=== PATIENT | female | born 1960 | race Hispanic/Latino ===

== ENCOUNTER 2019-04-20 16:46 | Emergency (ER) | payer OTHER ==
[2019-04-20 17:52] LABS: Absolute Lymphocytes (CBC) 2.4 K/uL (0.7-4.9); Basophils % 0.5 % (0-1.3); Hematocrit 43.5 % (36.0-45.0); Lymphocytes % 32.2 % (15.3-44.8); MPV 8.7 fL (7.6-11.3); Monocytes % 7.1 % (3.3-12.3); RBC Red Blood Cell Count 4.92 M/uL (3.86-4.86)
[2019-04-20 17:55] LABS: Protime INR 0.99
[2019-04-20 18:07] LABS: Potassium 4.1 mmol/L (3.5-5.1)
--- NOTE | 2019-04-20 18:24 | RAD REPORT ---
EXAM DESCRIPTION: RAD - Chest Single View - 04/20/2019 6:01 pm CLINICAL HISTORY: Shortness of breath, soft tissue swelling COMPARISON: None. TECHNIQUE: AP portable chest image was obtained 1741 hours . FINDINGS: Lungs are clear. Heart and vasculature are normal. No measurable pleural effusion and no p neumothorax. No acute bony abnormality seen. No acute aortic findings suspected. IMPRESSION: No acute cardiopulmonary process.
--- NOTE | 2019-04-20 19:11 | RAD REPORT ---
EXAM DESCRIPTION: CT - Soft Tissue Neck W/Contr - 04/20/2019 6:29 pm CLINICAL HISTORY: Soft tissue swelling at the chin TECHNIQUE: During dynamic enhancement using 100 milliliters nonionic IV contrast, axial 5 millimeter thick images of the neck were obtained. All CT scans are performed using dose optimization technique as appropriate and may include automated exposure control or mA/KV adjustment according to patient size. FINDINGS: Edematous/inflammatory stranding is present in the soft tissues along the anterior and inf erior margin of the midline mandible. Several small lymph nodes are present in this region up to 10 m m in size. No abscess or foreign body. No air in the soft tissues. Inflammatory changes do not extend into the floor the mouth. Muscles of the floor the mouth show no suspicious findings. No tongue or t ongue base abnormality. Intracranial portion of the examination is unremarkable. Mastoid air cells and paranasal sinuses are clear. No globe or orbital content abnormality. No pharyngeal mass or asymmetry tonsillar regions are normal. No parapharyngeal fat stranding. Epiglottis is normal. No laryngeal abnormality. Thyroid gland, submandibular gland and parotid gland tissue show no suspicious findings. IMPRESSION: Nonspecific infectious/ inflammatory stranding in the soft tissues anterior and inferior to the mandible. Reactive type lymph nodes are present in this region. No abscess, air or foreign body. No extension into the floor the mouth.
--- NOTE | 2019-04-20 19:13 | RAD REPORT ---
EXAM DESCRIPTION: US - Extremity Venous Uni Ltd - 04/20/2019 6:56 pm CLINICAL HISTORY: Leg pain and swelling COMPARISON: None. TECHNIQUE: Real-time sonographic evaluation of the left lower extremity deep venous system was perfo rmed. FINDINGS: Normal compressibility, flow augmentation, phasic flow and spontaneous flow are identified in the left lower extremity common femoral, superficial femoral, popliteal and posterior tibial vein s. No intraluminal filling defects seen. IMPRESSION: No DVT in the left lower extremity.
[2019-04-20] MEDS ORDERED: CLINDAMYCIN 900MG/D5W 900 MG/50 ML IVPB IV ONE (19:54)
--- NOTE | 2019-04-20 20:00 | ER ---
Nurse's Notes [facility] Name: Aga Reeder Age: 59 yrs Sex: Female : 1960 Arrival Date: 04/20/2019 Time: 16:47 Bed 24 Private MD: Diagnosis: Cellulitis and acute lymphangitis of face-submental;Edema, unspecified-left leg Presentation: 04/20 16:58 Presenting complaint: sister states while she was eating she pointed to her chin and it la1 looks swollen to me. Transition of care: patient was not received from another setting of care. Onset of symptoms was April 20, 2019. Risk Assessment: Do you want to hurt yourself or someone else? Patient reports no desire to harm self or others. Initial Sepsis Screen: Does the patient meet any 2 criteria? No. Patient's initial sepsis screen is negative. Does the patient have a suspected source of infection? No. Patient's initial sepsis screen is negative. Care prior to arrival: None. 16:58 Method Of Arrival: Ambulatory la1 16:58 Acuity: LYUBOV 3 la1 Historical: - Allergies: 16:58 No Known Allergies; la1 - PMHx: 16:58 None; la1 - Immunization history:: Adult Immunizations up to date. - Social history:: Smoking status: Patient/guardian denies using tobacco. - Ebola Screening: : No symptoms or risks identified at this time. Screenin:05 Abuse screen: Denies threats or abuse. Denies injuries from another. Nutritional ca1 screening: No deficits noted. Tuberculosis screening: No symptoms or risk factors identified. Fall Risk IV access (20 points). Assessment: 17:05 General: Appears in no apparent distress. comfortable, Behavior is calm, cooperative, ca1 appropriate for age. Pain: Denies pain. 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 Cardiovascular: Heart tones S1 S2 present Capillary refill < 3 seconds Patient's skin is warm and dry. Respiratory: Airway is patent Respiratory effort is even, unlabored, Breath sounds are clear bilaterally. GI: Abdomen is round non-distended, Bowel sounds present X 4 quads. Abd is soft and non tender X 4 quads. : No deficits noted. No signs and/or symptoms were reported regarding the genitourinary system. EENT:. Derm: Skin is intact, is healthy with good turgor, Skin is pink, warm \T\ dry. Musculoskeletal: Circulation, motion, and sensation intact. Capillary refill < 3 seconds, Range of motion: intact in all extremities, Swelling present in left foot. 18:00 Reassessment: Patient appears in no apparent distress at this time. Patient and/or ca1 family updated on plan of care and expected duration. Pain level reassessed. Patient is alert, oriented x 3, equal unlabored respirations, skin warm/dry/pink. 18:50 Reassessment: Patient appears in no apparent distress at this time. Patient and/or ca1 family updated on plan of care and expected duration. Pain level reassessed. Patient is alert, oriented x 3, equal unlabored respirations, skin warm/dry/pink. Ultrasound done at bedside. 19:20 Reassessment: Patient appears in no apparent distress at this time. Patient and/or ca1 family updated on plan of care and expected duration. Pain level reassessed. Patient is alert, oriented x 3, equal unlabored respirations, skin warm/dry/pink. Pt ambulated to restroom with quick, steady gait. 20:13 Reassessment: Patient appears in no apparent distress at this time. Patient is alert, ca1 oriented x 3, equal unlabored respirations, skin warm/dry/pink. Clindamycin still infusing. Will discharge as soon as completed. Vital Signs: 16:58 Resp 16; Temp 97.6(TE); Pulse Ox 100% on R/A; Weight 83.91 kg; la1 16:59 BP 162 / 81; la1 18:00 BP 147 / 75; Pulse 76; Resp 20 S; Pulse Ox 99% on R/A; ca1 18:50 BP 105 / 82; Pulse 90; Resp 17 S; Pulse Ox 100% on R/A; ca1 19:20 BP 148 / 81; Pulse 81; Resp 17 S; Pulse Ox 100% on R/A; ca1 20:13 BP 135 / 84; Pulse 88; Resp 16 S; Temp 98(O); Pulse Ox 99% ; ca1 20:26 BP 135 / 84; Pulse 85; Resp 18; Temp 98.6; Pulse Ox 99% ; Pain 0/10; cr4 ED Course: 16:47 Patient arrived in ED. ag5 16:58 Arm band placed on left wrist. la1 16:59 Triage completed. la1 17:01 Ventura Aguirre PA is PHCP. cp 17:01 Nitish Cannon MD is Attending Physician. cp 17:03 Cristin Hansen, CONI is Primary Nurse. ca1 17:05 Patient has correct armband on for positive identification. Placed in gown. Bed in low ca1 position. Call light in reach. Side rails up X 1. Pulse ox on. NIBP on. Warm blanket given. 17:05 No provider procedures requiring assistance completed. ca1 17:12 Radiology exam delayed due to lab results not completed at this time. (BUN/Creatinine). vm2 17:41 Initial lab(s) drawn, by me, sent to lab. Inserted saline lock: 20 gauge in right lt1 antecubital area, using aseptic technique. 17:44 XRAY Chest (1 view) In Process Unspecified. EDMS 17:59 Radiology exam delayed due to lab results not completed at this time. (BUN/Creatinine). nj 18:[address] via stretcher. nj 18:29 CT Soft Tissue Neck W/contr In Process Unspecified. EDMS 18:33 Patient moved back from CT. ca1 18:56 US Extremity Venous Unilateral Ltd In Process Unspecified. EDMS 18:57 Ultrasound completed. Patient tolerated well. sg3 20:27 IV discontinued, intact, bleeding controlled. cr4 Administered Medications: 19:53 Drug: Clindamycin 900 mg Route: IVPB; Infused Over: 30 mins; Site: right antecubital; cr4 20:14 Follow up: Response: No adverse reaction; IV Status: Completed infusion; IV Intake: [id number] Intake: 20:14 IV: 50ml; Total: 50ml. cr4 Outcome: 19:59 Discharge ordered by . cp 20:27 Discharged to home ambulatory, with family. cr4 20:27 Condition: good 20:27 Discharge instructions given to family, Instructed on discharge instructions, follow up and referral plans. medication usage, Demonstrated understanding of instructions, follow-up care, Prescriptions given X 2. 20:29 Patient left the ED. cr4 Signatures: Dispatcher [employer] EDMS Hilary Kay RN RN cr4 Glenroy Moya RN RN la1 Ventura Aguirre PA PA cp Jordan, Nathan nj McGuire Lashonda 2 Liliya Mckeon sg3 Cristin Hansen, RN RN ca1 Keya Don ag5 Ana Harris lt1
--- NOTE | 2019-04-20 20:00 | EDPHYS ---
Physician Documentation [facility] Name: Aga Reeder Age: 59 yrs Sex: Female : 1960 Arrival Date: 04/20/2019 Time: 16:47 Bed 24 Private MD: ED Physician Nitish Cannon HPI: 04/20 17:15 This 59 yrs old Female presents to ER via Ambulatory with complaints of Skin cp Problem. 17:15 The patient or guardian complains of pain, that is acute, swelling. The symptoms are cp located on the chin and submental area. 17:15 Onset: The symptoms/episode began/occurred at an unknown time. Patient is a mute and cp sister reports she noticed swelling today. Associated signs and symptoms: Pertinent negatives: fever. Unable to obtain HPI due to patient is mute. Historical: - Allergies: 16:58 No Known Allergies; la1 - PMHx: 16:58 None; la1 - Immunization history:: Adult Immunizations up to date. - Social history:: Smoking status: Patient/guardian denies using tobacco. - Ebola Screening: : No symptoms or risks identified at this time. ROS: 17:30 Constitutional: Negative for fever. cp 17:30 ENT: Positive for submental pain and swelling. cp 17:30 Unable to obtain ROS due to patient a mute. Exam: 18:35 Constitutional: The patient appears in no acute distress, alert, awake, cp non-diaphoretic, non-toxic, well developed, well nourished. 18:35 Head/face: Noted is erythema, that is mild, of the chin, swelling, that is mild, of the submental area, tenderness, that is mild, of the submental area. 18:35 Eyes: Periorbital structures: appear normal, Pupils: equal, round, and reactive to light and accomodation, Extraocular movements: intact throughout, Conjunctiva: normal, no exudate, no injection, Sclera: no appreciated abnormality, Lids and lashes: appear normal, bilaterally. 18:35 ENT: External ear(s): are unremarkable, Ear canal(s): are normal, clear, TM's: dullness, bilaterally, Nose: is normal, Mouth: Lips: moist, Oral mucosa: moist, Gums: normal with healthy appearance, Tongue: is normal, abscess, is not appreciated, Posterior pharynx: Airway: no evidence of obstruction, patent, erythema, is not appreciated, exudate, is not appreciated, Dental exam: abscess, is not appreciated, dental caries, that is moderate. 18:35 Neck: ROM/movement: is normal, is supple, no range of motions limitations, no meningismus, no nuchal rigidity. 18:35 Chest/axilla: Inspection: normal. 18:35 Cardiovascular: Rate: normal, Rhythm: regular. 18:35 Respiratory: the patient does not display signs of respiratory distress, Respirations: normal, no use of accessory muscles, no retractions, no splinting, no tachypnea, Breath sounds: are clear throughout, no decreased breath sounds, no stridor, no wheezing. 18:35 Abdomen/GI: Inspection: abdomen appears normal, Palpation: abdomen is soft and cp non-tender, in all quadrants. Vital Signs: 16:58 Resp 16; Temp 97.6(TE); Pulse Ox 100% on R/A; Weight 83.91 kg; la1 16:59 BP 162 / 81; la1 18:00 BP 147 / 75; Pulse 76; Resp 20 S; Pulse Ox 99% on R/A; ca1 18:50 BP 105 / 82; Pulse 90; Resp 17 S; Pulse Ox 100% on R/A; ca1 19:20 BP 148 / 81; Pulse 81; Resp 17 S; Pulse Ox 100% on R/A; ca1 20:13 BP 135 / 84; Pulse 88; Resp 16 S; Temp 98(O); Pulse Ox 99% ; ca1 20:26 BP 135 / 84; Pulse 85; Resp 18; Temp 98.6; Pulse Ox 99% ; Pain 0/10; cr4 MDM: 17:05 Patient medically screened. cp 18:00 Differential diagnosis: abscess, cellulitis, enlarged lymph node, dental abscess. cp 19:58 Data reviewed: vital signs, nurses notes, lab test result(s), radiologic studies, CT cp scan, plain films, and as a result, I will discharge patient. 19:58 Counseling: I had a detailed discussion with the patient and/or guardian regarding: the cp historical points, exam findings, and any diagnostic results supporting the discharge/admit diagnosis, lab results, radiology results, to return to the emergency department if symptoms worsen or persist or if there are any questions or concerns that arise at home. 19:58 Response to treatment: the patient's symptoms have mildly improved after treatment, and cp as a result, I will discharge patient. 04/20 17:09 Order name: Basic Metabolic Panel; Complete Time: 18:16 04/20 18:16 Interpretation: Normal except: CRE 1.39; GFR 39. 04/20 17:09 Order name: CBC with Diff; Complete Time: 18:16 04/20 18:16 Interpretation: Normal except: RBC 4.92. 04/20 17:09 Order name: PT-INR; Complete Time: 18:16 04/20 17:09 Order name: XRAY Chest (1 view); Complete Time: 19:31 04/20 19:31 Interpretation: Report review. 04/20 17:09 Order name: CT Soft Tissue Neck W/contr; Complete Time: 19:31 04/20 17:35 Order name: US Extremity Venous Unilateral Ltd; Complete Time: 19:31 04/20 17:09 Order name: Cardiac monitoring; Complete Time: 17:34 04/20 17:09 Order name: EKG - Nurse/Tech; Complete Time: 17:34 04/20 17:09 Order name: IV Saline Lock; Complete Time: 17:34 04/20 17:09 Order name: Labs collected and sent; Complete Time: 17:34 04/20 17:09 Order name: O2 Per Protocol; Complete Time: 17:34 04/20 17:09 Order name: O2 Sat Monitoring; Complete Time: 17:34 cp Administered Medications: 19:53 Drug: Clindamycin 900 mg Route: IVPB; Infused Over: 30 mins; Site: right antecubital; cr4 20:14 Follow up: Response: No adverse reaction; IV Status: Completed infusion; IV Intake: [id number] Disposition: 21:00 Chart complete. 04/21 07:36 Co-signature as Attending Physician, Nitish Cannon MD. rn Disposition: 04/20/19 19:59 Discharged to Home. Impression: Cellulitis and acute lymphangitis of face - submental, Edema, unspecified - left leg. - Condition is Stable. - Discharge Instructions: Cellulitis, Adult, Edema. - Prescriptions for Bactroban 2 % Topical Cream - Apply to affected area 1 application by TOPICAL route every 12 hours apply chin as directed; 15 gram. Clindamycin HCl 300 mg Oral Capsule - take 1 capsule by ORAL route every 6 hours for 10 days; 40 capsule. - Medication Reconciliation Form, Thank You Letter, Antibiotic Education, Prescription Opioid Use form. - Follow up: Private Physician; When: 2 - 3 days; Reason: Recheck today's complaints. - Problem is new. - Symptoms have improved. Signatures: Dispatcher [employer] EDHilary Prasad RN RN cr4 Nitish Cannon MD MD rn Attema, Lee, RN RN la1 Ventura Aguirre PA PA cp Corrections: (The following items were deleted from the chart) 04/20 20:29 19:59 04/20/2019 19:59 Discharged to Home. Impression: Cellulitis and acute cr4 lymphangitis of face - submental; Edema, unspecified - left leg. Condition is Stable. Forms are Medication Reconciliation Form, Thank You Letter, Antibiotic Education, Prescription Opioid Use. Follow up: Private Physician; When: 2 - 3 days; Reason: Recheck today's complaints. Problem is new. Symptoms have improved. cp
== END 2019-04-20 20:29 | disposition home or self-care (01) ==
LOC: ER 16:46
DX: L03.211 Cellulitis of face (principal); L03.212 Acute lymphangitis of face; R60.0 Localized edema; H91.3 Deaf nonspeaking, not elsewhere classified
CPT/HCPCS: 96365; 85025; 80048; 36415; 85610; 70491; 71045; 93971; 99284; Q9967